=== PATIENT | male | born 1960 | race Caucasian/White ===

== ENCOUNTER 2019-06-08 07:46 | Day surgery (SDC) | payer MEDICARE, MEDICAID ==
[~2019-06-08] VITALS: Ht 160 cm; Wt 54.9 kg
[~2019-06-08 07:46] MED LIST: LACT1CAP65 PO; RANI-648 PO; SIME180C34 PO
[2019-06-08] MEDS ORDERED: normal saline 1000ml 1,000 ML IV PRN (08:00)
[2019-06-08] MEDS ORDERED: albumin 25% 100mL bottle x 1 IV PRN (08:00)
[2019-06-08 08:14] VITALS: BP 103/65
[2019-06-08] MEDS ORDERED: CLINDAMYCIN 1% TP (08:24)
[2019-06-08] MEDS ORDERED: PROC10TA10 PO (08:24)
[2019-06-08] MEDS ORDERED: POLY17PO10 PO (08:24)
[2019-06-08] MEDS ORDERED: ONDA8TAB12 PO (08:24)
[2019-06-08] MEDS ORDERED: PROM25TA14 PO (08:24)
[2019-06-08] MEDS ORDERED: DICY20TA11 PO (08:24)
[2019-06-08] MEDS ORDERED: SENN1TAB33 PO (08:24)
[2019-06-08] MEDS ORDERED: CARV-49 PO (08:24)
[2019-06-08] MEDS ORDERED: MORP15TA PO (08:24)
[2019-06-08 09:47] VITALS: BP 104/71
[2019-06-08 10:00] VITALS: BP 105/90
[2019-06-08 10:15] VITALS: BP 120/75
== END 2019-06-08 10:55 | disposition home or self-care (01) ==
LOC: SSTAY O 07:46
PROVIDERS: ATTEND Radiology Vascular & Interventional Radiology
DX: R18.8 Other ascites (principal); C18.9 Malignant neoplasm of colon, unspecified; C78.7 Secondary malignant neoplasm of liver and intrahepatic bile duct; Z79.899 Other long term (current) drug therapy
CPT/HCPCS: 49083; C1729; J7030